=== PATIENT | male | born 1950 | race Caucasian/White ===

== ENCOUNTER 2017-12-18 12:07 | Day surgery (SDC) | payer OTHER, MEDICARE ==
--- NOTE | 2017-12-12 11:04 | RAD REPORT ---
EXAM DESCRIPTION: RAD - Chest Pa And Lat (2 Views) - 12/12/2017 10:48 am CLINICAL HISTORY: Preop chest, pending urolift and TURP procedure COMPARISON: None. TECHNIQUE: PA and lateral views of the chest were obtained. FINDINGS: The lungs are clear. Heart size is normal and central vasculature is within normal limit s. No pleural effusion or pneumothorax seen. No acute bony finding noted. No aortic abnormality. IMPRESSION: No acute cardiopulmonary process.
[2017-12-12 11:18] LABS: Absolute Lymphocytes (CBC) 1.9 K/uL (0.7-4.9); Absolute Monocytes 0.5 K/uL (0.1-1.3); Absolute Neutrophil 3.5 K/uL (1.8-8.0); Basophils % 0.6 % (0-1.3); Eosinophils % 1.5 % (0-4.4); Hematocrit 43.3 % (39.6-49.0); Lymphocytes % 31.1 % (15.3-44.8); MCH 32.2 pg (27.0-35.0); MCV 92.8 fL (80-100); MPV 9.3 fL (7.6-11.3); Monocytes % 8.8 % (3.3-12.3); RBC Red Blood Cell Count 4.67 M/uL (4.33-5.43)
[2017-12-12 11:22] LABS: Protime INR 1.12
[2017-12-12 12:29] LABS: Potassium 4.2 mmol/L (3.5-5.1)
--- NOTE | 2017-12-13 06:53 | EKG ---
Test Date: 2017-12-12 Test Time: 10:55:43 [employer]: JIMENA MEASUREMENT RESULTS: Intervals: Rate: 59 NC: 194 QRSD: 92 QT: 412 QTc: 407 [place]: P: 39 NC: 194 QRS: -1 T: 16 INTERPRETIVE STATEMENTS: Sinus bradycardia Otherwise normal ECG Compared to ECG 09/27/2016 15:31:22 Sinus rhythm no longer present Electronically Signed On 12-13-17 06:49:28 CDT by Salvatore Grimes
[~2017-12-18 12:07] MED LIST: CEFAZOLIN/SWI 1gm 1 GM/10 ML SYR ONE; Ringers Lactate 1,000 ML IV ONE
[2017-12-18] MEDS ORDERED: Ringers Lactate 1,000 ML IV ONE (12:28)
[2017-12-18] MEDS ORDERED: GENTAMICIN 100 MG/100 ML BAG 100 MG/100 ML BAG IV ONE (12:28)
[2017-12-18] MEDS ORDERED: FENTANYL CITR 100 MCG/2 ML ONE (13:53)
[2017-12-18] MEDS ORDERED: MIDAZOLAM HCL 2 MG/2 ML INJ ONE (13:53)
[2017-12-18] MEDS ORDERED: PROPOFOL 200 MG/20 ML VIAL IV ONE (13:53)
[2017-12-18] MEDS ORDERED: LIDOCAINE 1% MPF 5 ML VIAL ONE (13:54)
[2017-12-18] MEDS ORDERED: KETOROLAC 30 MG/ML INJ ONE (15:20)
[2017-12-18] MEDS ORDERED: ONDANSETRON HCL 40 MG/20 ML VIAL ONE (15:22)
[2017-12-18] MEDS ORDERED: PHENAZOPYRIDINE 100MG TAB PO ONE (16:29)
[2017-12-18] MEDS ORDERED: TRAMADOL HCL 50 MG TAB ONE (16:29)
== END 2017-12-18 17:58 | disposition home or self-care (01) ==
LOC: OR 12:07
PROVIDERS: ATTEND Urology
PROC: 0T7D8DZ Dilation of Urethra with Intraluminal Device, Via Natural or Artificial Opening Endoscopic (ICD-10-PCS; principal; 2017-12-18 13:45)
DX: N40.1 Benign prostatic hyperplasia with lower urinary tract symptoms (principal); R33.8 Other retention of urine; R39.12 Poor urinary stream; N42.9 Disorder of prostate, unspecified; E29.1 Testicular hypofunction; R97.20 Elevated prostate specific antigen [PSA]; R68.82 Decreased libido; N52.9 Male erectile dysfunction, unspecified; R53.81 Other malaise
CPT/HCPCS: 36415; 71046; 80048; 84153; 85025; 85610; 85730; 87088; 93005; J0690; J1580; J2250; J2405; J3010; 87086